=== PATIENT | female | born 1975 | race Asian ===

== ENCOUNTER 2019-05-21 09:28 | Emergency (ER) | payer OTHER ==
[~2019-05-21] VITALS: Ht 162.6 cm; Wt 77.1 kg
[2019-05-21 09:30] VITALS: BP_SYST 159
--- NOTE | 2019-05-21 09:30 | NUR ---
Placed in room 03. 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 To gown for exam. Side rails up.
--- NOTE | 2019-05-21 09:30 | NUR ---
Patient AAO x 4 ambulates to ED bed 03 c/o palpitations since this AM and upper 10 back/bilateral upper extremity pain since last night. Denies cough and SOB. States she took Tylenol this AM before work. Has history of prehypertension per PCP, controlled by diet and exercise. Skin pink, dry, and warm. Breathing even and unlabored. Will continue to monitor.
--- NOTE | 2019-05-21 09:34 | NUR ---
ER Dr. Jaimes at bedside examining patient.
[2019-05-21] MEDS ORDERED: LORazepam 1 MG TABLET PO ONE (09:45)
[2019-05-21 10:34] LABS: BASOPHILS # (AUTO) 0.1 K/uL (0.0-0.2); BASOPHILS % (AUTO) 0.5 % (0.0-2.0); EOSINOPHILS % (AUTO) 0.3 % (0.0-4.0); HEMATOCRIT 44.7 % (36-48); HEMOGLOBIN 15.2 g/dL (12.0-16.0); LYMPHOCYTES # (AUTO) 1.4 K/uL (1.0-5.5); LYMPHOCYTES % (AUTO) 12.2 % (20.5-51.5); MEAN CORPUSCULAR HEMOGLOBIN 30 pg (27-31); MEAN CORPUSCULAR HGB CONC 34 % (32-36); MEAN CORPUSCULAR VOLUME 89 fL (79.0-98.0); MONOCYTES # (AUTO) 0.5 K/uL (0.0-1.0); MONOCYTES % (AUTO) 3.9 % (1.7-9.3); NEUTROPHILS # (AUTO) 9.6 K/uL (1.8-7.7); NEUTROPHILS % (AUTO) 83.1 % (40.0-70.0); PLATELET COUNT (AUTO) 319 K/uL (130-430); RED BLOOD CELL COUNT(AUTO) 5.01 MIL/uL (4.2-6.2); RED CELL DISTRIBUTION WIDTH 13.2 % (9.0-15.0); WHITE BLOOD COUNT (AUTO) 11.6 K/uL (4.8-10.8)
[2019-05-21 10:44] LABS: CREATININE 0.55 mg/dL (0.55-1.30); POTASSIUM 3.4 mmol/L (3.5-5.1)
[2019-05-21 11:02] LABS: FREE T4 (FREE THYROXINE) 1.1 ng/dl (0.8-1.5); THYROID STIMULATING HORMONE 2.78 uIu/mL (0.36-3.74); TOTAL BILIRUBIN 0.5 mg/dL (0.0-1.0)
[2019-05-21 11:12] LABS: PROTHROMBIN TIME 9.8 SECS (9.5-12.5)
[2019-05-21 11:17] LABS: BARBITURATE, URINE NEGATIVE (NEG <=200); BENZODIAZEPINE, URINE NEGATIVE (NEG <=150); CANNABINOID, URINE NEGATIVE (NEG <=50); COCAINE, URINE NEGATIVE (NEG <=150); METHAMPHETAMINES SCREEN,URINE POSITIVE (NEG <=500); OPIATE, URINE NEGATIVE (NEG <=100); PHENCYCLIDINE SCREEN,URINE NEGATIVE (NEG <=25); UR TRICYCLIC ANTIDEPRESSANTS NEGATIVE (NEG <=300); URINE AMPHETAMINE NEGATIVE (NEG <=500); URINE METHADONE NEGATIVE (NEG <=200); URINE OXYCODONE SCREEN NEGATIVE (NEG <=100); URINE PROPOXYPHENE SCREEN NEGATIVE (NEG <=300)
--- NOTE | 2019-05-21 11:30 | NUR ---
Patient states she did not take Tylenol this AM. She states she had taken Bioflu, which is a pain relief medication she got from the [facility].
[2019-05-21 12:12] VITALS: BP_SYST 144
--- NOTE | 2019-05-21 12:12 | NUR ---
Patient given written and verbal discharge instructions and verbalizes understanding. ER MD Jaimes discussed with patient the results and treatment provided. Patient in stable condition. ID arm band removed. Rx of Clonidine given. Patient educated on stress reduction and to follow up with PMD. Pain Scale 0/10. Opportunity for questions provided and answered. Medication side effect fact sheet provided.
== END 2019-05-21 12:12 | disposition home or self-care (01) ==
LOC: SED 09:28
DX: R00.2 Palpitations (principal); M79.602 Pain in left arm
CPT/HCPCS: 36415; 71045; 80053; 80307; 82550-TC; 83880; 84439; 84443-TC; 84484; 85025; 85610-TC; 85730-TC; 93005; 99284